=== PATIENT | female | born 1950 | race Two or more races ===

== ENCOUNTER 2018-08-06 18:27 | Inpatient (IN) | payer MEDICARE, MEDICAID ==
[~2018-08-06] VITALS: Ht 157.5 cm; Wt 91.7 kg
[~2018-08-06 18:27] MED LIST: ASPI81TA27 PO; FAMO-12 PO; FURO40TA PO; LISI-275 PO; MINO1CAP PO; OXY5T PO; VORI200T8 PO
[2018-08-06 19:00] LABS: Basophils # (auto) 0.1 uL; Basophils % (auto) 0.6 % (0.0-2.0); Eosinophils # (auto) 0.1 uL; Eosinophils % (auto) 0.4 % (0.0-7.0); Hematocrit 36.8 % (36.0-46.0); Hemoglobin 11.8 g/dL (12.2-16.2); Lymphocytes # (auto) 0.8 uL; Lymphocytes % (auto) 4.7 % (10.0-50.0); Mean Corpuscular Hemoglobin 28.6 pg (28.0-32.0); Mean Corpuscular Hgb Conc. 32.2 g/dL (32.0-36.0); Mean Corpuscular Volume 88.7 fL (80.0-100.0); Monocytes # (auto) 0.9 uL; Monocytes % (auto) 4.7 % (0.0-12.0); Neutrophils # (auto) 16.1 uL; Neutrophils % (auto) 89.6 % (37.0-80.0); Nucleated Red Blood Cells % 0.1 %; Platelet Count (auto) 261 10^3/uL (140-450); Red Blood Cells 4.15 10^6/uL (4.0-5.20); Red Cell Distribution Width 15.6 % (11.8-14.3)
[2018-08-06 19:17] LABS: Albumin 2.6 g/dL (3.4-5.0); Anion Gap 7 (5-15); Blood Urea Nitrogen 60 mg/dL (7-18); Calcium 9.3 mg/dL (8.5-10.1); Carbon Dioxide 30 mmol/L (21-32); Chloride 98 mmol/L (98-107); Glucose 102 mg/dL (74-106); Potassium 4.4 mmol/L (3.5-5.1); Sodium 135 mmol/L (136-145)
[2018-08-06 19:22] LABS: Alanine Aminotransferase 42 U/L (13-56); Alkaline Phosphatase 262 U/L (45-117); Aspartate Aminotransferase 29 U/L (15-37); BUN/Creatinine Ratio 40.3; Bilirubin, Total 0.7 mg/dL (0.2-1.0); GFR African American 44 mL/min; GFR Non-African American 37 mL/min; Total Protein 6.3 g/dL (6.4-8.2)
[2018-08-06 21:00] LABS: Urine Bacteria NONE SEEN /hpf (None Seen); Urine Blood 2+ /uL (Negative); Urine Hyaline Cast FEW /lpf (0 - 2); Urine Specific Gravity 1.016 (1.001-1.035); Urine WBC 3 /hpf (0 - 5)
[2018-08-06 23:01] LABS: Amylase 29 U/L (25-115); Lipase 78 U/L (73-393)
[2018-08-07] MEDS ORDERED: ONDANSETRON HCL 4 MG/2 ML VIAL IV ONE
[2018-08-07] MEDS ORDERED: metroNIDAZOLE 500MG/100ML 100 ML IV ONE (04:00)
[2018-08-07] MEDS ORDERED: cefTRIAXone 1GM/50ML D5W 50 ML IV ONE (04:00)
[2018-08-07] MEDS ORDERED: SODIUM CHLORIDE 0.9% 1,000 ML IV SCH (04:30)
[2018-08-07] MEDS ORDERED: SODIUM CHLORIDE 0.9% 500 ML IV ONE (04:30)
[2018-08-07] MEDS ORDERED: ACETAMINOPHEN 325 MG TAB PO PRN (04:30)
[2018-08-07] MEDS ORDERED: LEVOFLOXACIN 250MG 50 ML IV ONE (05:00)
[2018-08-07] MEDS: HYDROcodone-ACET 5/325MG TAB PO PRN ×2 (05:40→10:46)
[2018-08-07] MEDS: SODIUM CHLORIDE 0.9% 1,000 ML IV SCH ×2 (05:47→20:08)
[2018-08-07] MEDS: metroNIDAZOLE 500MG/100ML 100 ML IV SCH ×3 (06:00→21:07)
[2018-08-07] MEDS: ONDANSETRON HCL 4 MG/2 ML VIAL IV PRN ×3 (07:22→21:19)
[2018-08-07 08:53] VITALS: BP 120/47
[2018-08-07 10:00] VITALS: BP 107/53
[2018-08-07] MEDS: LEVOFLOXACIN 250MG 50 ML IV SCH (10:00)
--- NOTE | 2018-08-07 10:00 | NUR ---
MS admit from DELANO JOHANSEN admitted to M/S. Verbal report received. Patient oriented to Roshni Chávez RN primary RN, unit, room, bed, and unit policies regarding patient care and visiting hours. Patient weighed by bedscale and encouraged to call if they need something. All questions and concerns addressed, patient verbalized understanding. Note:
[2018-08-07] MEDS: PANTOPRAZOLE 40 MG TAB PO SCH (10:45)
--- NOTE | 2018-08-07 10:45 | NUR ---
[place] given for c/oo "severe" low back pain.
[2018-08-07] MEDS ORDERED: MORPHINE SULFATE 4 MG/ML SYR/VIAL IV ONE ×2 (11:30)
--- NOTE | 2018-08-07 12:15 | NUR ---
Order received for one time dose of Morphine 1mg, given at this time for c/o of continued low back pain.
[2018-08-07 13:00] VITALS: BP 97/42
[2018-08-07] MEDS ORDERED: PANTOPRAZOLE 40 MG TAB PO ONE (14:00)
--- NOTE | 2018-08-07 14:00 | NUR ---
Pt resting quietly at this time. Pt states that degree of low back pain has diminished. No other c/o pain or discomfort.
--- NOTE | 2018-08-07 16:00 | NUR ---
[place] given for c/o low back pain.
[2018-08-07 17:00] VITALS: BP 98/31
--- NOTE | 2018-08-07 17:30 | NUR ---
[place] given for c/o "back spasms". No other c/o pain or discomfort at this time.
[2018-08-07] MEDS: CARISOPRODOL 350 MG TAB PO PRN (17:38)
[2018-08-07] MEDS: ALBUTEROL SULF 2.5 MG/0.5ML(0.5%) NEB SOLN NEB SCH (17:46)
[2018-08-07] MEDS: IPRATROPIUM BROM 0.5 MG/2.5ML INH SOL NEB SCH (17:46)
--- NOTE | 2018-08-07 19:10 | NUR ---
Opening Shift Note Assumed care of patient from day shift RN Roshni. Pt is awake and alert and oriented x4. Pt on 2LNC, respirations even equal and unlabored. No S/S of distress/SOB or pain. Safety maintained with bed rails upx2, locked and in lowest position with call del rosario within reach. Instructed on POC and to call for assist PRN, will continue to monitor for changes Q1hr and PRN.
[2018-08-07] MEDS: MORPHINE SULF INJ 2 MG/ML SYRINGE 1ML IV PRN (21:08)
[2018-08-07 22:00] VITALS: BP 123/46
[2018-08-08] MEDS: HYDROcodone-ACET 5/325MG TAB PO PRN ×5 (00:15→23:13)
[2018-08-08 04:30] VITALS: BP 110/50
[2018-08-08] MEDS: ONDANSETRON HCL 4 MG/2 ML VIAL IV PRN ×3 (05:22→20:31)
[2018-08-08] MEDS: MORPHINE SULF INJ 2 MG/ML SYRINGE 1ML IV PRN ×2 (05:23→20:31)
[2018-08-08] MEDS: metroNIDAZOLE 500MG/100ML 100 ML IV SCH ×3 (05:23→21:14)
[2018-08-08] MEDS: IPRATROPIUM BROM 0.5 MG/2.5ML INH SOL NEB SCH ×3 (06:07→18:16)
[2018-08-08] MEDS: ALBUTEROL SULF 2.5 MG/0.5ML(0.5%) NEB SOLN NEB SCH ×3 (06:07→18:17)
[2018-08-08] MEDS: CARISOPRODOL 350 MG TAB PO PRN ×2 (06:49→19:27)
--- NOTE | 2018-08-08 07:24 | NUR ---
Closing Shift Note Endorsed care to day shift RN Roshni. Pt resting in bed, no s/s distress.
[2018-08-08] MEDS: SODIUM CHLORIDE 0.9% 1,000 ML IV SCH ×2 (08:15→21:35)
[2018-08-08 09:00] VITALS: BP 104/52
[2018-08-08 09:15] LABS: Basophils # (auto) 0 uL; Basophils % (auto) 0.3 % (0.0-2.0); Eosinophils # (auto) 0.2 uL; Eosinophils % (auto) 1.6 % (0.0-7.0); Hematocrit 34.8 % (36.0-46.0); Hemoglobin 11.2 g/dL (12.2-16.2); Lymphocytes # (auto) 0.8 uL; Mean Corpuscular Hemoglobin 28.6 pg (28.0-32.0); Mean Corpuscular Hgb Conc. 32.1 g/dL (32.0-36.0); Mean Corpuscular Volume 89.3 fL (80.0-100.0); Monocytes # (auto) 0.8 uL; Monocytes % (auto) 8.1 % (0.0-12.0); Nucleated Red Blood Cells % 0.1 %; Platelet Count (auto) 208 10^3/uL (140-450); Red Blood Cells 3.89 10^6/uL (4.0-5.20); Red Cell Distribution Width 16.1 % (11.8-14.3); White Blood Cell 9.7 10^3/uL (4.4-10.8)
[2018-08-08] MEDS: AMIODARONE HCL 200 MG TAB PO SCH (09:20)
[2018-08-08] MEDS: ASPirin 81 mg TAB PO SCH (09:21)
[2018-08-08] MEDS: PANTOPRAZOLE 40 MG TAB PO SCH ×2 (09:21→10:00)
[2018-08-08] MEDS: LEVOFLOXACIN 250MG 50 ML IV SCH (09:22)
[2018-08-08 09:30] LABS: INR 0.98 (0.9-1.15); Partial Thromboplastin Time 22.3 sec (23.64-32.05)
[2018-08-08 09:42] LABS: Calcium 8.8 mg/dL (8.5-10.1)
[2018-08-08 09:46] LABS: BUN/Creatinine Ratio 29.2; Bilirubin, Total 0.4 mg/dL (0.2-1.0); Total Protein 5.2 g/dL (6.4-8.2)
--- NOTE | 2018-08-08 10:00 | NUR ---
IV removal IV DC'd, to right wrist, due to redness and swelling, with sterile technique, catheter fully intact. Pressure dressing applied to site. Patient tolerated procedure well. IV insertion IV access obtained, via clean sterile technique by inserting 24 gauge catheter at left upper chest area after two attempt. IV secured properly. No trauma to site. Patient tolerated procedure well.
[2018-08-08 10:36] LABS: Cholesterol 165 mg/dL (< 200); HDL Cholesterol 23 mg/dL (40-59); LDL Cholesterol 137 mg/dL (< 100); Triglycerides 90 mg/dL (< 150)
[2018-08-08 13:00] VITALS: BP 125/57
--- NOTE | 2018-08-08 14:00 | NUR ---
PT REFUSED P.T. EVEN AFTER BEING MEDICATED FOR PAIN.
[2018-08-08 17:00] VITALS: BP 124/57
[2018-08-08 22:00] VITALS: BP 99/35
[2018-08-09] MEDS: ONDANSETRON HCL 4 MG/2 ML VIAL IV PRN ×5 (00:33→20:31)
[2018-08-09] MEDS: MORPHINE SULF INJ 2 MG/ML SYRINGE 1ML IV PRN ×5 (00:33→20:31)
[2018-08-09] MEDS: SODIUM CHLORIDE 0.9% 1,000 ML IV SCH (01:48)
[2018-08-09 05:00] VITALS: BP 113/47
[2018-08-09] MEDS: metroNIDAZOLE 500MG/100ML 100 ML IV SCH ×3 (05:29→22:18)
[2018-08-09] MEDS: ALBUTEROL SULF 2.5 MG/0.5ML(0.5%) NEB SOLN NEB SCH ×3 (06:21→17:26)
[2018-08-09] MEDS: IPRATROPIUM BROM 0.5 MG/2.5ML INH SOL NEB SCH ×3 (06:21→17:26)
--- NOTE | 2018-08-09 07:15 | NUR ---
Open Shift Note Received report on patient, asleep in bed but easily awoken. Patient states back pain but less pain when not moving. Patient refusing to have head of bed elevated because they state it makes their pain worse. 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 Educated patient on lung function and ways to decrease anxiety. Also discussed POC with patient and plans for MRCP MRI. Patient verbalized understanding. Bed in lowest locked position, side rails up x2 and call light within reach. Will continue to monitor.
[2018-08-09 08:00] VITALS: BP 102/42
[2018-08-09] MEDS: CARISOPRODOL 350 MG TAB PO PRN (08:24)
--- NOTE | 2018-08-09 09:15 | NUR ---
No MRI Due To Pacemaker Spoke with Jarod from MRI who stated MRI cannot be completed due to patient having pacemaker.
--- NOTE | 2018-08-09 09:23 | NUR ---
Spoke With Dr Amanda Patel at nurses station, states he is aware MRI cannot be completed due to pacemaker. States he believes patient's situation is due to trauma. No further recommendations at this time.
[2018-08-09 09:46] LABS: Basophils # (auto) 0 uL; Basophils % (auto) 0.5 % (0.0-2.0); Eosinophils # (auto) 0.2 uL; Eosinophils % (auto) 2.1 % (0.0-7.0); Hematocrit 34.6 % (36.0-46.0); Hemoglobin 11.1 g/dL (12.2-16.2); Lymphocytes # (auto) 0.5 uL; Lymphocytes % (auto) 7.4 % (10.0-50.0); Mean Corpuscular Hemoglobin 28.8 pg (28.0-32.0); Monocytes # (auto) 0.7 uL; Monocytes % (auto) 9.6 % (0.0-12.0); Neutrophils # (auto) 5.8 uL; Neutrophils % (auto) 80.4 % (37.0-80.0); Platelet Count (auto) 191 10^3/uL (140-450); Red Blood Cells 3.84 10^6/uL (4.0-5.20); Red Cell Distribution Width 16.2 % (11.8-14.3); White Blood Cell 7.3 10^3/uL (4.4-10.8)
[2018-08-09 09:53] LABS: BUN/Creatinine Ratio 24.5; Calcium 8.2 mg/dL (8.5-10.1); Potassium 3.8 mmol/L (3.5-5.1)
[2018-08-09] MEDS: AMIODARONE HCL 200 MG TAB PO SCH (10:29)
[2018-08-09] MEDS: PANTOPRAZOLE 40 MG TAB PO SCH (10:29)
[2018-08-09] MEDS: LEVOFLOXACIN 250MG 50 ML IV SCH (10:29)
[2018-08-09] MEDS: ASPirin 81 mg TAB PO SCH (10:35)
--- NOTE | 2018-08-09 11:00 | NUR ---
PT DECLINED P.T. BECAUSE OF PAIN
[2018-08-09 11:56] VITALS: BP 106/49
[2018-08-09] MEDS: guaiFENesin-DM 100/10mg/5ml SYR PO PRN ×3 (11:56→20:31)
[2018-08-09 16:00] VITALS: BP 106/52
[2018-08-09 17:00] VITALS: BP 106/52
--- NOTE | 2018-08-09 18:52 | NUR ---
Closing Shift Note Patient lying in bed, shows no signs of distress at this time. Bed in lowest locked position, side rails up x2 and call light within reach. Family present at bedside.
--- NOTE | 2018-08-09 19:45 | NUR ---
open note assumed care of pt. upon entering room, pt awake and alert and family member at bedside. no distress noted. bed locked, low and 2xrails up. pt on 2L NC and has strauss in place. call light in reach. pt and family updated on plan of care, no additional questions at this time. will round on pt q1hr and prn.
--- NOTE | 2018-08-09 22:00 | NUR ---
pt does not want to be repositioned. citing "it hurts too bad", referring to pain in back. pt instead encouraged to shift weight regularly so as to prevent skin breakdown.
[2018-08-09 22:41] VITALS: BP 124/54
[2018-08-09] MEDS: TEMAZEPAM 15 MG CAP PO PRN (22:45)
[2018-08-10] MEDS: SODIUM CHLORIDE 0.9% 1,000 ML IV SCH ×2 (00:15→13:51)
[2018-08-10] MEDS: ONDANSETRON HCL 4 MG/2 ML VIAL IV PRN ×5 (00:45→19:13)
[2018-08-10] MEDS: guaiFENesin-DM 100/10mg/5ml SYR PO PRN ×5 (00:46→19:13)
[2018-08-10] MEDS: MORPHINE SULF INJ 2 MG/ML SYRINGE 1ML IV PRN ×5 (00:46→19:13)
--- NOTE | 2018-08-10 03:43 | NUR ---
rounds upon entering room pt eyes are closed, breathing is even and unlabored. no s/s distress noted. call light in reach, will continue to monitor.
[2018-08-10] MEDS: CARISOPRODOL 350 MG TAB PO PRN ×2 (03:55→16:53)
[2018-08-10] MEDS: metroNIDAZOLE 500MG/100ML 100 ML IV SCH ×3 (05:43→21:37)
[2018-08-10 05:53] VITALS: BP 119/57
[2018-08-10] MEDS: IPRATROPIUM BROM 0.5 MG/2.5ML INH SOL NEB SCH ×4 (06:55→19:00)
[2018-08-10] MEDS: ALBUTEROL SULF 2.5 MG/0.5ML(0.5%) NEB SOLN NEB SCH ×4 (06:55→19:00)
[2018-08-10 08:00] VITALS: BP 103/43
[2018-08-10] MEDS: PANTOPRAZOLE 40 MG TAB PO SCH (10:00)
[2018-08-10] MEDS: FUROSEMIDE 20 MG TAB PO SCH (10:36)
[2018-08-10] MEDS: ASPirin 81 mg TAB PO SCH (10:36)
[2018-08-10] MEDS: AMIODARONE HCL 200 MG TAB PO SCH (10:36)
[2018-08-10] MEDS: LEVOFLOXACIN 500MG 100 ML IV SCH (10:37)
[2018-08-10] MEDS: DOCUSATE SOD 100 MG CAP PO SCH ×2 (10:37→21:36)
[2018-08-10 12:00] VITALS: BP 115/51
--- NOTE | 2018-08-10 14:04 | NUR ---
NUTRITION ASSESSMENT NOTES Please refer to link notes of nutrition screen form filed under the intervention section of the plan of care for further details. Est. Needs: 1350 kcal to 1800 kcal (15-20 kcal/kgBW), 72 gms to 90 gms pro (0.8-1.0 gms/kgBW). Will continue to monitor pertinent labs and reassess nutrient need prn Thank you. Addendum: 08/10/18 at [address] Amended: Links added.
--- NOTE | 2018-08-10 15:00 | NUR ---
PT REFUSED P.T. EVEN WITH BACK BRACE.
[2018-08-10 15:49] VITALS: BP 115/51
[2018-08-10] MEDS: HYDROcodone-ACET 5/325MG TAB PO PRN ×2 (16:53→22:16)
[2018-08-10 17:00] VITALS: BP 111/54
[2018-08-10 22:00] VITALS: BP 112/48
[2018-08-10] MEDS: TEMAZEPAM 15 MG CAP PO PRN (22:15)
[2018-08-11] MEDS: MORPHINE SULF INJ 2 MG/ML SYRINGE 1ML IV PRN ×5 (01:21→23:30)
[2018-08-11] MEDS: ONDANSETRON HCL 4 MG/2 ML VIAL IV PRN ×2 (01:21→23:30)
[2018-08-11] MEDS: guaiFENesin-DM 100/10mg/5ml SYR PO PRN ×3 (01:26→23:35)
[2018-08-11] MEDS: SODIUM CHLORIDE 0.9% 1,000 ML IV SCH ×2 (04:11→16:15)
[2018-08-11] MEDS: HYDROcodone-ACET 5/325MG TAB PO PRN ×4 (04:20→20:54)
[2018-08-11 05:20] VITALS: BP 116/62
[2018-08-11] MEDS: metroNIDAZOLE 500MG/100ML 100 ML IV SCH ×3 (05:31→21:15)
[2018-08-11] MEDS: IPRATROPIUM BROM 0.5 MG/2.5ML INH SOL NEB SCH ×3 (06:48→18:33)
[2018-08-11] MEDS: ALBUTEROL SULF 2.5 MG/0.5ML(0.5%) NEB SOLN NEB SCH ×3 (06:48→18:33)
--- NOTE | 2018-08-11 07:43 | NUR ---
Report given to Hi Marquez to assume care, patient is resting no distress.
[2018-08-11 08:42] VITALS: BP 111/52
[2018-08-11] MEDS: LEVOFLOXACIN 500MG 100 ML IV SCH (09:17)
[2018-08-11] MEDS: ASPirin 81 mg TAB PO SCH (09:17)
[2018-08-11] MEDS: AMIODARONE HCL 200 MG TAB PO SCH (09:17)
[2018-08-11] MEDS: DOCUSATE SOD 100 MG CAP PO SCH ×2 (09:17→21:15)
[2018-08-11] MEDS: PANTOPRAZOLE 40 MG TAB PO SCH (09:18)
[2018-08-11] MEDS: FUROSEMIDE 20 MG TAB PO SCH (09:18)
--- NOTE | 2018-08-11 10:44 | NUR ---
JIN CATHETER CARE COMPLETED. APPLIED BARRIER CREAM TO REDDENED PERINEAL AREA, ABDOMINAL AND BREAST FOLDS. PROVIDED COMFORTABLE POSITIONING IN BED. CALL LIGHT WITHIN REACH. WILL CONTINUE TO MONITOR.
[2018-08-11] MEDS: CARISOPRODOL 350 MG TAB PO PRN (10:52)
[2018-08-11] MEDS: ENOXAPARIN SOD 40 MG/0.4 ML SYRINGE SC SCH (10:53)
--- NOTE | 2018-08-11 11:50 | NUR ---
COMPLETE BACK SUPPORT BRACE APPLIED. PT TOLERATED PROCEDURE FAIRLY.
[2018-08-11 12:30] VITALS: BP 108/55
[2018-08-11 17:00] VITALS: BP 120/56
--- NOTE | 2018-08-11 19:30 | NUR ---
Opening shift note Patient in bed sleeping with eyes closed, easily arousable to verbal stimuli. Patient's respiration even and unlabored, denies pain and discomfort at this time. Morphine was given by prior shift RN. Plan of care discussed, patient verbalized understanding. All needs attended, will continue to monitor.
[2018-08-11] MEDS: TEMAZEPAM 15 MG CAP PO PRN (21:15)
[2018-08-11 22:15] VITALS: BP 103/62
[2018-08-12] VITALS (7 sets, daily range): BP systolic 96–119; BP diastolic 47–59
[2018-08-12] MEDS: HYDROcodone-ACET 5/325MG TAB PO PRN ×5 (01:26→20:43)
[2018-08-12] MEDS: SODIUM CHLORIDE 0.9% 1,000 ML IV SCH ×2 (02:51→18:55)
[2018-08-12] MEDS: ONDANSETRON HCL 4 MG/2 ML VIAL IV PRN ×5 (03:25→22:35)
[2018-08-12] MEDS: MORPHINE SULF INJ 2 MG/ML SYRINGE 1ML IV PRN ×5 (03:25→22:35)
[2018-08-12] MEDS: guaiFENesin-DM 100/10mg/5ml SYR PO PRN ×3 (03:43→20:43)
[2018-08-12] MEDS: metroNIDAZOLE 500MG/100ML 100 ML IV SCH ×3 (05:21→21:42)
--- NOTE | 2018-08-12 07:20 | NUR ---
Opening Shift Note Assumed care of patient, awake and alert. No S/S of distress/SOB or pain. Instructed on POC and to call for assist PRN, will continue to monitor for changes Q1hr and PRN.
[2018-08-12] MEDS: ALBUTEROL SULF 2.5 MG/0.5ML(0.5%) NEB SOLN NEB SCH ×3 (07:32→20:18)
[2018-08-12] MEDS: IPRATROPIUM BROM 0.5 MG/2.5ML INH SOL NEB SCH ×3 (07:32→20:18)
[2018-08-12] MEDS: LEVOFLOXACIN 500MG 100 ML IV SCH (09:27)
[2018-08-12] MEDS: PANTOPRAZOLE 40 MG TAB PO SCH (09:27)
[2018-08-12] MEDS: DOCUSATE SOD 100 MG CAP PO SCH ×2 (09:28→21:42)
[2018-08-12] MEDS: AMIODARONE HCL 200 MG TAB PO SCH (09:28)
[2018-08-12] MEDS: ASPirin 81 mg TAB PO SCH (09:28)
[2018-08-12] MEDS: FUROSEMIDE 20 MG TAB PO SCH (09:29)
[2018-08-12] MEDS: ENOXAPARIN SOD 40 MG/0.4 ML SYRINGE SC SCH (09:29)
--- NOTE | 2018-08-12 17:13 | NUR ---
assessment Patient is a 68 year old female who is alert and oriented. Prior to admission patient lived home with her Ex Keyur and functioned with assistance from her [facility] caregiver Silvana her daughter. Patients PCP is Dr Olman Padilla. Patient has a fww, wheelchair and home 02. Patient has no advanced directive or POA and does not want one at this time. I informed patient she has a ss consult for SNF and patient agrees to SNF placement. Per SS consult for rehab L1 fx . Pt requested [facility]. Per Eulalio from [facility] pt was not accepted. Per patient she does not want [facility]. Patient is requesting [facility]. Will re-direct MD order to [facility]. Addendum: 08/12/18 at 1717 by Maxine Giles Amended: Links added.
--- NOTE | 2018-08-12 22:18 | NUR ---
Opening Shift Note Assumed care of patient, awake and alert. at bed side. No S/S of distress/SOB or pain. Instructed on POC and to call for assist PRN, will continue to monitor for changes Q1hr and PRN.
--- NOTE | 2018-08-13 01:20 | NUR ---
NEW JIN CATHETER INSERTED UPON ROUNDING AND REPOSITIONING PATIENT. PATIENT STATES FEELING WET, ON ASSESSMENT URINE NOTED ON SHEETS PROGRESSIVELY. NEW JIN IN PLACE. PATIENT TOLERATED WELL.
[2018-08-13] MEDS: HYDROcodone-ACET 5/325MG TAB PO PRN ×4 (02:00→21:45)
[2018-08-13] MEDS: guaiFENesin-DM 100/10mg/5ml SYR PO PRN ×2 (02:00→21:40)
[2018-08-13 05:00] VITALS: BP 112/67
[2018-08-13] MEDS: ONDANSETRON HCL 4 MG/2 ML VIAL IV PRN (05:13)
[2018-08-13] MEDS: MORPHINE SULF INJ 2 MG/ML SYRINGE 1ML IV PRN ×4 (05:13→20:08)
[2018-08-13] MEDS: metroNIDAZOLE 500MG/100ML 100 ML IV SCH ×3 (06:20→21:40)
[2018-08-13] MEDS: IPRATROPIUM BROM 0.5 MG/2.5ML INH SOL NEB SCH ×3 (07:17→19:26)
[2018-08-13] MEDS: ALBUTEROL SULF 2.5 MG/0.5ML(0.5%) NEB SOLN NEB SCH ×3 (07:17→19:26)
[2018-08-13 08:15] VITALS: BP 112/67
[2018-08-13] MEDS: SODIUM CHLORIDE 0.9% 1,000 ML IV SCH ×2 (08:15→21:35)
[2018-08-13 09:00] VITALS: BP 125/63
[2018-08-13] MEDS: LEVOFLOXACIN 500MG 100 ML IV SCH (09:44)
[2018-08-13] MEDS: AMIODARONE HCL 200 MG TAB PO SCH (09:45)
[2018-08-13] MEDS: ASPirin 81 mg TAB PO SCH (09:45)
[2018-08-13] MEDS: DOCUSATE SOD 100 MG CAP PO SCH ×2 (09:45→21:41)
[2018-08-13] MEDS: PANTOPRAZOLE 40 MG TAB PO SCH (09:46)
[2018-08-13] MEDS: ENOXAPARIN SOD 40 MG/0.4 ML SYRINGE SC SCH (09:46)
[2018-08-13] MEDS: FUROSEMIDE 20 MG TAB PO SCH (09:46)
--- NOTE | 2018-08-13 09:59 | NUR ---
Per GREG consult for rehab L1 fx . Pt requested [facility]. Per Eulalio from [facility] they are unable to satisfied pt needs. Contacted Brandy from [place] ) Fax: ) pt accepted to room 63B accepting MD Dr. Liu. Per Brandy they will set up transportation upon d/c. Addendum: 08/13/18 at 1001 by NANCI ANDRADE Amended: Links added.
--- NOTE | 2018-08-13 11:36 | NUR ---
Pt Primary Dr. Padilla will follow pt at [facility]. Informed Brandy from [facility].
--- NOTE | 2018-08-13 11:51 | NUR ---
Nutrition Follow-up Notes Wt.: 94.5 kg Pt was sleeping with no family by bedside. per records pt with back pain due to L 1 fx post fall. per reyna pt working with PT for same. pt is currently on cardiac diet with inadequate PO of 50% x 5 per RN doc Est. Needs: 1350 kcal to 1800 kcal (15-20 kcal/kgBW), 72 gms to 90 gms pro (0.8-1.0 gms/kgBW). Will continue to monitor pertinent labs and reassess nutrient need prn Labs: No new labs today 08/09: CA 8.2 L. Skin: Curly scale 14, mod risk, skin intact per manager company. GI: Pt has no BM reported per manager company. PES: Altered nutrition related lab values r/t acute/chronic medical condition aeb hypocalcemia, low Cr, elev. ALP, LDL, and severe hypoalbuminemia Obesity r.t excessive PO intake aeb 179% IBW, BMI 36.1 kg/m2 and increased body adiposity Will continue to monitor PO intake, skin status, pertinent labs and weight trend. F/u in 3-5 days. Rec.: 1.) If Albumin level continues trending down, consider Prostat 1 pkt BID. 2.) Continue close supervision during meals. 3.) Refer pt to RD for further nutrition education and weight monitoring upon discharge. 4.) Continue current plan of care.
[2018-08-13 13:00] VITALS: BP 115/56
[2018-08-13 16:41] VITALS: BP 119/61
--- NOTE | 2018-08-13 18:43 | NUR ---
Respiratory note: AT BEDSIDE FOR MED SUZIE ACEVEDO, PT CALLING FOR NURSE BECAUSE PT ACCIDENTALLY SOILED THE BED, NEDRA DOW COMMUNICATED OF PTS COMPLAINTS. WILL RETURN AT LATER TIME TO ADMINISTER MED.
--- NOTE | 2018-08-13 19:25 | NUR ---
Opening Shift Note Assumed care of patient, awake and alert. No S/S of distress/SOB. PT complained of pain will medicate per MD order. Instructed on POC and to call for assist PRN, will continue to monitor for changes Q1hr and PRN. Bed locked and in lowest position, call light within reach.
--- NOTE | 2018-08-13 19:27 | NUR ---
Respiratory note: AT BEDSIDE FOR MED NEB TX. PT TOLERATING TX WELL VIA MASK. RT NAME AND PAGER ASSIGNMENT WRITTEN ON PTS ROOM BOARD.
[2018-08-13 22:00] VITALS: BP 128/56
[2018-08-13] MEDS: TEMAZEPAM 15 MG CAP PO PRN (22:54)
[2018-08-14] MEDS: SODIUM CHLORIDE 0.9% 1,000 ML IV SCH (01:58)
[2018-08-14 05:00] VITALS: BP 130/65
[2018-08-14] MEDS: MORPHINE SULF INJ 2 MG/ML SYRINGE 1ML IV PRN ×4 (05:23→22:27)
[2018-08-14] MEDS: metroNIDAZOLE 500MG/100ML 100 ML IV SCH ×3 (05:24→22:24)
[2018-08-14] MEDS: guaiFENesin-DM 100/10mg/5ml SYR PO PRN ×3 (05:24→22:28)
[2018-08-14] MEDS: IPRATROPIUM BROM 0.5 MG/2.5ML INH SOL NEB SCH ×3 (06:39→18:54)
[2018-08-14] MEDS: ALBUTEROL SULF 2.5 MG/0.5ML(0.5%) NEB SOLN NEB SCH ×3 (06:39→18:53)
--- NOTE | 2018-08-14 07:43 | NUR ---
CLOSING NOTE Report endorsed to day RN , no s/sx's of distress or sob noted
[2018-08-14 08:00] VITALS: BP 115/60
[2018-08-14] MEDS: HYDROcodone-ACET 5/325MG TAB PO PRN ×3 (08:26→21:25)
[2018-08-14] MEDS: LEVOFLOXACIN 500MG 100 ML IV SCH (10:08)
[2018-08-14] MEDS: PANTOPRAZOLE 40 MG TAB PO SCH (10:09)
[2018-08-14] MEDS: AMIODARONE HCL 200 MG TAB PO SCH (10:09)
[2018-08-14] MEDS: ASPirin 81 mg TAB PO SCH (10:09)
[2018-08-14] MEDS: DOCUSATE SOD 100 MG CAP PO SCH ×2 (10:09→22:25)
[2018-08-14] MEDS: ENOXAPARIN SOD 40 MG/0.4 ML SYRINGE SC SCH (10:09)
[2018-08-14] MEDS: FUROSEMIDE 20 MG TAB PO SCH (10:10)
[2018-08-14 12:00] VITALS: BP 124/68
[2018-08-14 16:00] VITALS: BP 135/55
[2018-08-14 22:00] VITALS: BP 115/53
[2018-08-14] MEDS: TEMAZEPAM 15 MG CAP PO PRN (22:28)
[2018-08-15] MEDS: SODIUM CHLORIDE 0.9% 1,000 ML IV SCH ×2 (00:15→14:03)
[2018-08-15 05:00] VITALS: BP 111/62
[2018-08-15] MEDS: IPRATROPIUM BROM 0.5 MG/2.5ML INH SOL NEB SCH ×3 (06:09→19:29)
[2018-08-15] MEDS: ALBUTEROL SULF 2.5 MG/0.5ML(0.5%) NEB SOLN NEB SCH ×3 (06:09→19:29)
[2018-08-15] MEDS: metroNIDAZOLE 500MG/100ML 100 ML IV SCH ×3 (06:20→21:34)
[2018-08-15 06:55] LABS: Basophils # (auto) 0 uL; Basophils % (auto) 0.2 % (0.0-2.0); Eosinophils # (auto) 0.1 uL; Eosinophils % (auto) 0.9 % (0.0-7.0); Hematocrit 30.9 % (36.0-46.0); Hemoglobin 10.2 g/dL (12.2-16.2); Lymphocytes # (auto) 1.7 uL; Lymphocytes % (auto) 15.7 % (10.0-50.0); Mean Corpuscular Hemoglobin 29.4 pg (28.0-32.0); Monocytes # (auto) 0.8 uL; Monocytes % (auto) 7.9 % (0.0-12.0); Neutrophils # (auto) 8.1 uL; Neutrophils % (auto) 75.3 % (37.0-80.0); Nucleated Red Blood Cells % 0.2 %; Platelet Count (auto) 200 10^3/uL (140-450); Red Blood Cells 3.47 10^6/uL (4.0-5.20); Red Cell Distribution Width 16.9 % (11.8-14.3); White Blood Cell 10.7 10^3/uL (4.4-10.8)
[2018-08-15 08:54] VITALS: BP 136/59
[2018-08-15] MEDS: HYDROcodone-ACET 5/325MG TAB PO PRN ×3 (09:03→20:01)
[2018-08-15] MEDS: ENOXAPARIN SOD 40 MG/0.4 ML SYRINGE SC SCH (10:00)
[2018-08-15] MEDS: LEVOFLOXACIN 500MG 100 ML IV SCH (12:03)
[2018-08-15] MEDS: DOCUSATE SOD 100 MG CAP PO SCH ×2 (12:03→21:35)
[2018-08-15] MEDS: FUROSEMIDE 20 MG TAB PO SCH (12:03)
[2018-08-15] MEDS: ASPirin 81 mg TAB PO SCH (12:03)
[2018-08-15] MEDS: AMIODARONE HCL 200 MG TAB PO SCH (12:04)
[2018-08-15] MEDS: PANTOPRAZOLE 40 MG TAB PO SCH (12:04)
--- NOTE | 2018-08-15 12:22 | NUR ---
Pt states she is unable to sit today for a prolonged period of time, pt states she has increased pain and discomfort. Pt worked on log rolling from R<---->L. Pt was instructed to use bed rail for support and to use bed rail to pull herself towards the side she is wanting to turn. Pt understood and was able to return demonstration Addendum: 08/15/18 at 1224 by Talia Sahu PT Amended: Links added.
[2018-08-15 13:00] VITALS: BP 139/62
[2018-08-15 17:00] VITALS: BP 117/59
--- NOTE | 2018-08-15 19:30 | NUR ---
RECEIVED PATIENT LYING IN BED, AWAKE, ALERT, ORIENTED X4. NO S/S OF RESPIRATORY DISTRESS, DENIES SOB AND CHEST PAIN. STILL C/O LOWER BACK PAIN. ORIENTED ON PLAN OF CARE. BED IS LOCKED AND IN LOWEST LEVEL, SIDE RAILS UP X2, CALL LIGHT WITHIN REACH. WILL CONTINUE TO MONITOR.
[2018-08-15] MEDS: MORPHINE SULF INJ 2 MG/ML SYRINGE 1ML IV PRN (21:27)
[2018-08-15] MEDS: ONDANSETRON HCL 4 MG/2 ML VIAL IV PRN (21:30)
[2018-08-15 22:00] VITALS: BP 110/55
[2018-08-15] MEDS: TEMAZEPAM 15 MG CAP PO PRN (22:28)
[2018-08-16] MEDS: ONDANSETRON HCL 4 MG/2 ML VIAL IV PRN ×5 (01:42→21:39)
[2018-08-16] MEDS: MORPHINE SULF INJ 2 MG/ML SYRINGE 1ML IV PRN ×5 (01:42→21:39)
[2018-08-16] MEDS: SODIUM CHLORIDE 0.9% 1,000 ML IV SCH ×2 (02:55→17:01)
--- NOTE | 2018-08-16 03:00 | NUR ---
CARE ENDORSED TO NEDRA LR
[2018-08-16 05:10] VITALS: BP 136/66
[2018-08-16] MEDS: ALBUTEROL SULF 2.5 MG/0.5ML(0.5%) NEB SOLN NEB SCH ×3 (06:00→17:11)
[2018-08-16] MEDS: IPRATROPIUM BROM 0.5 MG/2.5ML INH SOL NEB SCH ×3 (06:00→17:11)
[2018-08-16] MEDS: metroNIDAZOLE 500MG/100ML 100 ML IV SCH ×3 (06:30→21:39)
--- NOTE | 2018-08-16 07:45 | NUR ---
OPENING NOTE Assumed care of patient from [facility] RNIsai. Patient resting in bed with eyes closed, even rise and fall of chest noted. No S/S of SOB/distress. Nasal cannula in position, connected to 2L O2. Olivas catheter appears intact, patent and is hung below bed. Bed in lowest, locked position with side rails up x2. Fall precautions in place and call light within reach. Will continue to monitor for changes Q1hr and PRN.
[2018-08-16 09:00] VITALS: BP 144/67
[2018-08-16] MEDS: LEVOFLOXACIN 500MG 100 ML IV SCH (10:33)
[2018-08-16] MEDS: ASPirin 81 mg TAB PO SCH (10:33)
[2018-08-16] MEDS: DOCUSATE SOD 100 MG CAP PO SCH ×2 (10:34→21:40)
[2018-08-16] MEDS: FUROSEMIDE 20 MG TAB PO SCH (10:34)
[2018-08-16] MEDS: ENOXAPARIN SOD 40 MG/0.4 ML SYRINGE SC SCH (10:34)
[2018-08-16] MEDS: AMIODARONE HCL 200 MG TAB PO SCH (10:34)
[2018-08-16] MEDS: PANTOPRAZOLE 40 MG TAB PO SCH (10:34)
[2018-08-16 13:00] VITALS: BP 130/58
[2018-08-16 14:30] VITALS: BP 147/67
[2018-08-16] MEDS: HYDROcodone-ACET 5/325MG TAB PO PRN ×2 (15:05→19:57)
[2018-08-16 17:00] VITALS: BP 125/76
--- NOTE | 2018-08-16 17:45 | NUR ---
IV Leaking IV removed, catheter intact. IV access obtained, via clean sterile technique by inserting 20 gauge catheter at right chest after 2 attempts. IV secured properly. No trauma to site. Patient tolerated well.
--- NOTE | 2018-08-16 19:22 | NUR ---
CLOSING NOTE Endorsed care of patient to NOC Andrew SNEED.
--- NOTE | 2018-08-16 19:35 | NUR ---
RECEIVED PATIENT LYING IN BED, AWAKE, ALERT, ORIENTED X4. NO S/S OF RESPIRATORY DISTRESS, DENIES SOB AND CHEST PAIN. ORIENTED ON PLAN OF CARE. BED IS LOCKED AND IN LOWEST LEVEL, SIDE RAILS UP X2, CALL LIGHT WITHIN REACH. WILL CONTINUE TO MONITOR.
--- NOTE | 2018-08-16 19:45 | NUR ---
DR. Arabella SALMERON AT BEDSIDE
[2018-08-16 22:00] VITALS: BP 122/63
[2018-08-16] MEDS: TEMAZEPAM 15 MG CAP PO PRN (22:43)
[2018-08-17] MEDS: MORPHINE SULF INJ 2 MG/ML SYRINGE 1ML IV PRN ×5 (02:49→20:53)
[2018-08-17] MEDS: ONDANSETRON HCL 4 MG/2 ML VIAL IV PRN ×5 (02:49→20:52)
[2018-08-17] MEDS: ALBUTEROL SULF 2.5 MG/0.5ML(0.5%) NEB SOLN NEB PRN (03:05)
[2018-08-17 05:00] VITALS: BP 138/60
[2018-08-17] MEDS: SODIUM CHLORIDE 0.9% 1,000 ML IV SCH ×2 (05:35→18:53)
[2018-08-17] MEDS: metroNIDAZOLE 500MG/100ML 100 ML IV SCH (05:49)
[2018-08-17] MEDS: IPRATROPIUM BROM 0.5 MG/2.5ML INH SOL NEB SCH ×3 (06:28→19:24)
[2018-08-17] MEDS: ALBUTEROL SULF 2.5 MG/0.5ML(0.5%) NEB SOLN NEB SCH ×3 (06:29→19:24)
--- NOTE | 2018-08-17 07:29 | NUR ---
CARE ENDORSED TO AM SHIFT RN
--- NOTE | 2018-08-17 07:35 | NUR ---
OPENING NOTE Assumed care of patient from NOC RNAndrew. Patient awake and alert with no S/S of distress/SOB. C/O of back pain 6/10 on adult pain scale, will administer prn pain medications as ordered. Back brace in position. Nasal cannula in position, connected to 2L O2. Olivas catheter intact, patent and hung below bed. Instructed on POC and to call for assist PRN, verbalized understanding. Bed in lowest, locked position with side rails up x2. Fall precautions in place and call light within reach. Will continue to monitor for changes Q1hr and PRN.
[2018-08-17 08:59] VITALS: BP 127/56
--- NOTE | 2018-08-17 09:30 | NUR ---
PT Patient working with physical therapy at bedside.
[2018-08-17] MEDS: DOCUSATE SOD 100 MG CAP PO SCH ×2 (10:00→22:00)
[2018-08-17] MEDS: ASPirin 81 mg TAB PO SCH (10:24)
[2018-08-17] MEDS: PANTOPRAZOLE 40 MG TAB PO SCH (10:25)
[2018-08-17] MEDS: ENOXAPARIN SOD 40 MG/0.4 ML SYRINGE SC SCH (10:25)
[2018-08-17] MEDS: FUROSEMIDE 20 MG TAB PO SCH (10:25)
[2018-08-17] MEDS: AMIODARONE HCL 200 MG TAB PO SCH (10:25)
--- NOTE | 2018-08-17 11:55 | NUR ---
Nutrition Follow-up Notes Wt.: 93.9 kg Pt was sleeping with no family by bedside. per records pt with back pain due to L 1 fx post fall. pt is currently on cardiac diet with inadequate PO of 50% x 2 days per RN doc Est. Needs: 1350 kcal to 1800 kcal (15-20 kcal/kgBW), 72 gms to 90 gms pro (0.8-1.0 gms/kgBW). Will continue to monitor pertinent labs and reassess nutrient need prn Labs: No new labs today 08/09: CA 8.2 L, ALB 2.0 L. Skin: Curly scale 15, mod risk, skin intact per asbestos worker helper. GI: Pt had 2 BM on 08/15 per asbestos worker helper. PES: Altered nutrition related lab values r/t acute/chronic medical condition aeb hypocalcemia, low Cr, elev. ALP, LDL, and severe hypoalbuminemia Obesity r.t excessive PO intake aeb 179% IBW, BMI 36.1 kg/m2 and increased body adiposity Will continue to monitor PO intake, skin status, pertinent labs and weight trend. F/u in 3-5 days. Rec.: 1.) If Albumin level continues trending down, consider Prostat 1 pkt BID. 2.) Continue close supervision during meals. 3.) Refer pt to RD for further nutrition education and weight monitoring upon discharge. 4.) Continue current plan of care.
[2018-08-17 12:30] VITALS: BP 134/79
[2018-08-17 16:56] VITALS: BP 130/68
--- NOTE | 2018-08-17 18:50 | NUR ---
PAGED Paged Dr. Voss regarding Echocardiogram results.
--- NOTE | 2018-08-17 19:17 | NUR ---
CLOSING NOTE Endorsed care of patient to NOC Andrew SNEED.
--- NOTE | 2018-08-17 19:30 | NUR ---
RECEIVED PATIENT LYING IN BED, AWAKE, ALERT, ORIENTED X4. NO S/S OF RESPIRATORY DISTRESS, DENIES SOB AND CHEST PAIN. ORIENTED ON PLAN OF CARE. BED IS LOCKED AND IN LOWEST LEVEL, SIDE RAILS UP X2, BED ALARM ON, CALL LIGHT WITHIN REACH. WILL CONTINUE TO MONITOR.
[2018-08-17] MEDS: TEMAZEPAM 15 MG CAP PO PRN (22:18)
[2018-08-17 22:21] VITALS: BP 108/58
[2018-08-18] MEDS: HYDROcodone-ACET 5/325MG TAB PO PRN (00:06)
[2018-08-18] MEDS: MORPHINE SULF INJ 2 MG/ML SYRINGE 1ML IV PRN ×4 (05:13→20:28)
[2018-08-18] MEDS: ONDANSETRON HCL 4 MG/2 ML VIAL IV PRN ×3 (05:13→15:45)
[2018-08-18 05:43] VITALS: BP 139/58
[2018-08-18] MEDS: ALBUTEROL SULF 2.5 MG/0.5ML(0.5%) NEB SOLN NEB SCH ×4 (07:04→18:13)
[2018-08-18] MEDS: IPRATROPIUM BROM 0.5 MG/2.5ML INH SOL NEB SCH ×4 (07:04→18:13)
--- NOTE | 2018-08-18 07:15 | NUR ---
OPENING NOTE Assumed care of patient from NOC RNAndrew. Patient awake and alert with no S/S of distress/SOB. C/O of back pain 7/10 on adult pain scale, will administer prn pain medication as prescribed. Nasal cannula in position, connected to 2L O2. Instructed on POC and to call for assist PRN, verbalized understanding. Bed in lowest, locked position with side rails up x2. Fall precautions in place and call light within reach. Will continue to monitor for changes Q1hr and PRN.
--- NOTE | 2018-08-18 07:18 | NUR ---
CARE ENDORSED TO AM SHIFT RN
[2018-08-18 09:00] VITALS: BP 123/55
[2018-08-18] MEDS: SODIUM CHLORIDE 0.9% 1,000 ML IV SCH ×2 (10:07→21:38)
[2018-08-18] MEDS: PANTOPRAZOLE 40 MG TAB PO SCH (10:08)
[2018-08-18] MEDS: ASPirin 81 mg TAB PO SCH (10:08)
[2018-08-18] MEDS: AMIODARONE HCL 200 MG TAB PO SCH (10:08)
[2018-08-18] MEDS: DOCUSATE SOD 100 MG CAP PO SCH ×3 (10:08→21:40)
[2018-08-18] MEDS: ALBUTEROL SULF 2.5 MG/0.5ML(0.5%) NEB SOLN NEB PRN (10:15)
[2018-08-18] MEDS: ENOXAPARIN SOD 40 MG/0.4 ML SYRINGE SC SCH (10:16)
[2018-08-18] MEDS: FUROSEMIDE 20 MG TAB PO SCH (10:16)
--- NOTE | 2018-08-18 10:20 | NUR ---
LEFT MESSAGE FOR MD Left message for Dr. Arabella Armas regarding cardiac clearance. Awaiting call back.
[2018-08-18 13:00] VITALS: BP 129/65
--- NOTE | 2018-08-18 13:11 | NUR ---
PAGED Left message with Dr. Armas's office regarding cardiac clearance. Awaiting call back from .
[2018-08-18] MEDS: guaiFENesin-DM 100/10mg/5ml SYR PO PRN ×2 (14:02→20:28)
[2018-08-18 16:51] VITALS: BP 122/68
--- NOTE | 2018-08-18 18:30 | NUR ---
AT BEDSIDE Dr. Armas at patient's bedside.
--- NOTE | 2018-08-18 19:10 | NUR ---
assumed care, pt. awake, no c/o pain, repositioned pt. no sob.
[2018-08-18 19:44] LABS: Basophils # (auto) 0 uL; Basophils % (auto) 0.2 % (0.0-2.0); Eosinophils # (auto) 0 uL; Eosinophils % (auto) 0.1 % (0.0-7.0); Hematocrit 31.6 % (36.0-46.0); Hemoglobin 10.1 g/dL (12.2-16.2); Lymphocytes # (auto) 1.1 uL; Lymphocytes % (auto) 9.9 % (10.0-50.0); Mean Corpuscular Hemoglobin 27.6 pg (28.0-32.0); Mean Corpuscular Volume 86.3 fL (80.0-100.0); Monocytes # (auto) 0.8 uL; Monocytes % (auto) 7.3 % (0.0-12.0); Neutrophils # (auto) 9.2 uL; Neutrophils % (auto) 82.5 % (37.0-80.0); Platelet Count (auto) 357 10^3/uL (140-450); Red Blood Cells 3.66 10^6/uL (4.0-5.20); Red Cell Distribution Width 16.5 % (11.8-14.3); White Blood Cell 11.2 10^3/uL (4.4-10.8)
[2018-08-18 19:58] LABS: Alanine Aminotransferase 14 U/L (13-56); Albumin 1.7 g/dL (3.4-5.0); Anion Gap 9 (5-15); Aspartate Aminotransferase 12 U/L (15-37); BUN/Creatinine Ratio 8.8; Blood Urea Nitrogen 6 mg/dL (7-18); Carbon Dioxide 31 mmol/L (21-32); Chloride 101 mmol/L (98-107); GFR African American 110 mL/min; GFR Non-African American 91 mL/min; Glucose 118 mg/dL (74-106); Sodium 141 mmol/L (136-145)
[2018-08-18 20:01] LABS: Alkaline Phosphatase 144 U/L (45-117); Bilirubin, Total 0.3 mg/dL (0.2-1.0); Total Protein 5.8 g/dL (6.4-8.2)
--- NOTE | 2018-08-18 20:40 | NUR ---
lab. called, pt. k- 2.8, paged hospitalist, waiting to call back.
[2018-08-18 20:42] LABS: Potassium 2.8 mmol/L (3.5-5.1)
[2018-08-18 20:53] LABS: INR 1.02 (0.9-1.15); Partial Thromboplastin Time 29.4 sec (23.64-32.05)
--- NOTE | 2018-08-18 21:10 | NUR ---
hospitalist called back, made order and carried out.
[2018-08-18] MEDS ORDERED: POTASSIUM CHL 20 Meq TABLET PO ONE (21:15)
[2018-08-18 21:40] VITALS: BP 132/56
[2018-08-18] MEDS: TEMAZEPAM 15 MG CAP PO PRN (22:26)
[2018-08-19] MEDS: MORPHINE SULF INJ 2 MG/ML SYRINGE 1ML IV PRN ×5 (01:23→18:51)
[2018-08-19] MEDS: ALBUTEROL SULF 2.5 MG/0.5ML(0.5%) NEB SOLN NEB PRN (03:41)
[2018-08-19 05:19] VITALS: BP 122/60
[2018-08-19] MEDS: IPRATROPIUM BROM 0.5 MG/2.5ML INH SOL NEB SCH ×3 (06:44→17:53)
[2018-08-19] MEDS: ALBUTEROL SULF 2.5 MG/0.5ML(0.5%) NEB SOLN NEB SCH ×3 (06:44→17:53)
--- NOTE | 2018-08-19 07:30 | NUR ---
OPENING NOTE ASSUMED CARE OF PATIENT. ALERT AND ORIENTED. NO SIGNS OF SOB/DISTRESS NOTED. BED SET TO LOWEST POSITION/LOCKED, BEDSIDE RAILS UP X2, CALL LIGHT WITH IN REACH. INSTRUCTED PATIENT TO CALL FOR ASSISTANCE. DISCUSSED POC. WILL CONTINUE TO MONITOR Q 1HR AND PRN.
[2018-08-19 09:00] VITALS: BP 130/61
[2018-08-19] MEDS: DOCUSATE SOD 100 MG CAP PO SCH ×2 (09:02→21:10)
[2018-08-19] MEDS: ASPirin 81 mg TAB PO SCH (09:02)
[2018-08-19] MEDS: PANTOPRAZOLE 40 MG TAB PO SCH (09:02)
[2018-08-19] MEDS: AMIODARONE HCL 200 MG TAB PO SCH (09:02)
[2018-08-19] MEDS: ENOXAPARIN SOD 40 MG/0.4 ML SYRINGE SC SCH (09:02)
[2018-08-19] MEDS: FUROSEMIDE 20 MG TAB PO SCH (09:02)
[2018-08-19] MEDS: ONDANSETRON HCL 4 MG/2 ML VIAL IV PRN ×3 (09:03→18:52)
[2018-08-19] MEDS ORDERED: POTASSIUM CHL 20 Meq TABLET PO ONE ×2 (09:30→17:00)
[2018-08-19] MEDS: SODIUM CHLORIDE 0.9% 1,000 ML IV SCH (10:55)
[2018-08-19 13:00] VITALS: BP 129/63
[2018-08-19 17:33] VITALS: BP 120/62
--- NOTE | 2018-08-19 18:20 | NUR ---
PER DR. JACKSON HOLD BLOOD THINNERS.
--- NOTE | 2018-08-19 19:35 | NUR ---
assumed care, pt. awake, relative at bedside, no c/o pain and nausea, no sob.
[2018-08-19] MEDS: guaiFENesin-DM 100/10mg/5ml SYR PO PRN (21:11)
[2018-08-19] MEDS: TEMAZEPAM 15 MG CAP PO PRN (21:11)
[2018-08-19 22:00] VITALS: BP 122/75
[2018-08-20] MEDS: SODIUM CHLORIDE 0.9% 1,000 ML IV SCH (00:15)
[2018-08-20] MEDS: MORPHINE SULF INJ 2 MG/ML SYRINGE 1ML IV PRN ×3 (00:16→10:41)
[2018-08-20 05:00] VITALS: BP 124/60
[2018-08-20] MEDS: ALBUTEROL SULF 2.5 MG/0.5ML(0.5%) NEB SOLN NEB SCH ×3 (07:10→19:02)
[2018-08-20] MEDS: IPRATROPIUM BROM 0.5 MG/2.5ML INH SOL NEB SCH ×3 (07:10→19:02)
[2018-08-20] MEDS: Pro-Stat SF 30ml Vanilla PO SCH ×2 (08:00→18:00)
[2018-08-20 08:18] VITALS: BP 124/60
[2018-08-20 09:13] VITALS: BP 115/77
[2018-08-20] MEDS: ASPirin 81 mg TAB PO SCH (10:00)
[2018-08-20] MEDS: DOCUSATE SOD 100 MG CAP PO SCH ×2 (10:00→21:03)
[2018-08-20] MEDS: FUROSEMIDE 20 MG TAB PO SCH (10:39)
[2018-08-20] MEDS: POTASSIUM CHL 20 Meq TABLET PO SCH (10:39)
[2018-08-20] MEDS: PANTOPRAZOLE 40 MG TAB PO SCH (10:40)
[2018-08-20] MEDS: AMIODARONE HCL 200 MG TAB PO SCH (10:40)
[2018-08-20] MEDS: ONDANSETRON HCL 4 MG/2 ML VIAL IV PRN (10:50)
--- NOTE | 2018-08-20 11:27 | NUR ---
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 Pt's usually has fair appetite, tries to eat meals regularly, NKFA and tries tto follow Low Na and Heart healthy diet ship captain. Pt's NPO earlier, likely to resume oral diet today with active order for Cardiac diet with Prostat 1 pkt BID. Noted pt's for active Cardiology consult. Est. Needs: 1350 kcal to 1800 kcal (15-20 kcal/kgBW), 72 gms to 90 gms pro (0.8-1.0 gms/kgBW). Will continue to monitor pertinent labs and reassess nutrient need prn Labs: Gluc 118 H, K 3.2 L, Ca 8.0 L, AST 12 L, ALP 144 H, Tpro 5.8 L, Alb 1.7 L. Skin: Curly scale 16, mod risk, skin intact per plug maker. GI: Pt had 1x BM this morning per plug maker. PES: Altered nutrition related lab values r/t acute/chronic medical condition aeb hypocalcemia, low Cr, elev. ALP, LDL, and severe hypoalbuminemia Obesity r.t excessive PO intake aeb 179% IBW, BMI 36.1 kg/m2 and increased body adiposity Will continue to monitor NPO status/PO intake, skin status, pertinent labs and weight trend. F/u in 3 to 5 days. Rec.: 1.) Resume oral diet when medically appropriate. 2.) Consider daily MVI with minerals and Asc acid 500 mgs BID prn. 3.) Continue close supervision during meals. 4.) Refer pt to RD for further nutrition education and weight monitoring upon discharge. 5.) Continue current plan of care.
[2018-08-20] MEDS ORDERED: LIDOCAINE 1% (LOCAL ANESTH.) PF 5ml SDV ONE ×2 (11:58→11:59)
[2018-08-20] MEDS ORDERED: IOHEXOL 300 MG/ML 100ML BOTTLE IJ ONE (12:00)
[2018-08-20 13:14] VITALS: BP 116/66
--- NOTE | 2018-08-20 14:05 | NUR ---
PATIENT OFF UNIT VIA BED TO PEROP.
[2018-08-20] MEDS ORDERED: CLINDAMYCIN 900MG IV 50 ML IV ONE (14:09)
[2018-08-20] MEDS ORDERED: MIDAZOLAM HCL 1MG/1ML-2 ML VIAL ONE (14:24)
[2018-08-20] MEDS ORDERED: PROPOFOL 10 MG/ML 20 ML IV ONE (14:24)
[2018-08-20] MEDS ORDERED: fentaNYL CITRATE 100 MCG/2 ML VL ONE (14:24)
[2018-08-20] MEDS ORDERED: LIDOCAINE 1% HCL (LOCAL ANESTH.) INJ 20ML MDV ONE (15:19)
[2018-08-20] MEDS ORDERED: fentaNYL CITRATE 100 MCG/2 ML VL IV ONE (15:47)
[2018-08-20] MEDS ORDERED: ONDANSETRON HCL 4 MG/2 ML VIAL IV ONE (16:00)
[2018-08-20] MEDS ORDERED: hydrALAZINE HCL 20 MG/ML VL IV PRN (16:00)
[2018-08-20] MEDS ORDERED: fentaNYL CITRATE 100 MCG/2 ML VL IV PRN (16:00)
[2018-08-20] MEDS ORDERED: ePHEDrine SULFATE 50 MG/ML AMP IV PRN (16:00)
--- NOTE | 2018-08-20 16:10 | NUR ---
RECEIVED REPORT FROM INDUSTRIAL RENDERERNEDRA EUGENE. PER RN IV IS LEAKING AND SHE DID NOT TRY TO ATTEMPT TO PUT A NEW IV IN. SHE WILL PUT IN DIET ORDERS AND PER DR. SALMERON PATIENT DOES NOT HAVE TO WEAR BRACE AND TO HOLD LOVENOX UNTIL TOMORROW. MD SALMERON CLEARED PATIENT FOR DISCHARGE AND WANTS PATIENT TO FOLLOW UP OUTPATIENT. ENDORSE CARE TO PRIMARY RN
--- NOTE | 2018-08-20 16:20 | NUR ---
PATIENT BACK FROM OR. FOOD AND NUTRITION PROFESSOR NOT AT BEDSIDE. PATIENT WAS BROUGHT UP BY FOOD AND NUTRITION PROFESSOR LUISITO AND SHE LEFT SOON PATIENT WAS IN ROOM. RN DID NOT SHOW ME SURGICAL SITE.
--- NOTE | 2018-08-20 16:30 | NUR ---
PRIMARY RN JOSE ARMANDO BACK FROM LUNCH. UPDATED RN ON PATIENT'S STATUS AND DR. SALMERON'S ORDERS, RN IS AWARE AND IS ASSESSING PATIENT'S SURGICAL SITE.
[2018-08-20] MEDS ORDERED: HYDROcodone-ACET 10/325MG TAB PO ONE (16:45)
[2018-08-20 17:24] VITALS: BP 124/68
--- NOTE | 2018-08-20 19:30 | NUR ---
assumed care, pt. awake, no c/o pain and nausea, no sob.
[2018-08-20] MEDS ORDERED: HYDROcodone-ACET 5/325MG TAB PO ONE (20:00)
[2018-08-20] MEDS: TEMAZEPAM 15 MG CAP PO PRN (21:04)
[2018-08-20] MEDS: guaiFENesin-DM 100/10mg/5ml SYR PO PRN (21:04)
[2018-08-20 22:00] VITALS: BP 117/53
[2018-08-21] MEDS: MORPHINE SULF INJ 2 MG/ML SYRINGE 1ML IV PRN ×2 (00:39→04:44)
--- NOTE | 2018-08-21 02:00 | NUR ---
MIDLINE PLACEMENT UNSUCCESSFUL Patient educated on need for midline placement. All risks and benefits explained and all questions and concerns addresses prior to procedure. UNABLE TO PLACE MIDLINE AFTER ONE ATTEMPT ON EACH ARM. PT REQUESTING TO CONTINUE USING 22G IV SHE HAS ON HER CHEST.
[2018-08-21 05:09] VITALS: BP 128/63
[2018-08-21] MEDS: IPRATROPIUM BROM 0.5 MG/2.5ML INH SOL NEB SCH ×3 (06:18→18:37)
[2018-08-21] MEDS: ALBUTEROL SULF 2.5 MG/0.5ML(0.5%) NEB SOLN NEB SCH ×3 (06:18→18:37)
[2018-08-21] MEDS: Pro-Stat SF 30ml Vanilla PO SCH ×2 (08:00→18:12)
--- NOTE | 2018-08-21 08:02 | NUR ---
Dr. Ladi Tellez in to see patient as hospitalist.
[2018-08-21] MEDS: MORPHINE SULFATE 4 MG/ML SYR/VIAL IV PRN ×3 (08:59→21:05)
[2018-08-21 09:00] VITALS: BP_SYST 128; BP_SYST 148; BP_DIAS 69; BP_DIAS 75
[2018-08-21] MEDS: ONDANSETRON HCL 4 MG/2 ML VIAL IV PRN (09:00)
--- NOTE | 2018-08-21 09:25 | NUR ---
Pt. refusing to get out of bed today. Pt states that she is feeling a lot of pain secondary to yesterday's procedure. Advised patient will give her the day off today however, to be prepared for tomorrow so she can work with PT Pt has been working with her yellow TB which is at her bedside for billorena UE strengthening Addendum: 08/21/18 at 8348 by Talia Sahu PT Amended: Links added.
[2018-08-21] MEDS: AMIODARONE HCL 200 MG TAB PO SCH (09:50)
[2018-08-21] MEDS: DOCUSATE SOD 100 MG CAP PO SCH ×2 (09:51→21:35)
[2018-08-21] MEDS: POTASSIUM CHL 20 Meq TABLET PO SCH (09:51)
[2018-08-21] MEDS: ASPirin 81 mg TAB PO SCH (09:51)
[2018-08-21] MEDS: PANTOPRAZOLE 40 MG TAB PO SCH (09:51)
[2018-08-21] MEDS: FUROSEMIDE 20 MG TAB PO SCH (09:51)
[2018-08-21] MEDS ORDERED: POTASSIUM CHL 20 Meq TABLET PO SCH (10:00)
[2018-08-21 13:00] VITALS: BP 123/56
[2018-08-21] MEDS: CARISOPRODOL 350 MG TAB PO PRN (13:08)
[2018-08-21 17:00] VITALS: BP 121/55
[2018-08-21] MEDS: guaiFENesin-DM 100/10mg/5ml SYR PO PRN (19:21)
--- NOTE | 2018-08-21 20:00 | NUR ---
OPENING NOTE RECEIVED REPORT FROM DAYSHIFT RN. ASSUMING ROLE OF CARE OF PATIENT AT THIS TIME. PATIENT SHOWING NO SIGN OF DISTRESS, SHORTNESS OF BREATH, BUT PATIENT DOES STATE HAVING PAIN. WILL MEDICATE PER PAIN PROTOCOL WHEN AVAILABLE. PATIENT AND EDUCATED ON PLAN OF CARE FOR THE NIGHT AND PATIENT VERBALIZED UNDERSTANDING. BED LOWERED, CALL LIGHT WITHIN REACH, AND PATIENT WILL BE ROUNDED ON EVERY HOUR AND NEEDED.
[2018-08-21 22:00] VITALS: BP 146/71
[2018-08-21] MEDS: TEMAZEPAM 15 MG CAP PO PRN (22:19)
[2018-08-22] MEDS: MORPHINE SULFATE 4 MG/ML SYR/VIAL IV PRN ×3 (04:36→18:41)
[2018-08-22] MEDS: guaiFENesin-DM 100/10mg/5ml SYR PO PRN ×3 (04:44→19:37)
[2018-08-22 04:59] VITALS: BP 137/69
[2018-08-22] MEDS: ALBUTEROL SULF 2.5 MG/0.5ML(0.5%) NEB SOLN NEB SCH ×3 (06:28→18:26)
[2018-08-22] MEDS: IPRATROPIUM BROM 0.5 MG/2.5ML INH SOL NEB SCH ×3 (06:28→18:26)
[2018-08-22] MEDS: Pro-Stat SF 30ml Vanilla PO SCH ×2 (08:00→18:00)
[2018-08-22 09:00] VITALS: BP 134/63
[2018-08-22] MEDS: POTASSIUM CHL 20 Meq TABLET PO SCH (09:49)
[2018-08-22] MEDS: DOCUSATE SOD 100 MG CAP PO SCH ×2 (09:49→21:20)
[2018-08-22] MEDS: PANTOPRAZOLE 40 MG TAB PO SCH (09:49)
[2018-08-22] MEDS: CARISOPRODOL 350 MG TAB PO PRN ×2 (09:49→22:05)
[2018-08-22] MEDS: ASPirin 81 mg TAB PO SCH (09:49)
[2018-08-22] MEDS: AMIODARONE HCL 200 MG TAB PO SCH (09:49)
[2018-08-22] MEDS: FUROSEMIDE 20 MG TAB PO SCH (09:50)
--- NOTE | 2018-08-22 11:05 | NUR ---
Patient requesting to have another rest day today. Pt educated on the importance of getting out of bed, pt understood. Patient agreed to do bedside ther ex, patient worked on ankle pumps, heel slides, quad sets, glute sets and hip abd/add x 10 reps for bilat LE's. Advised patient will return in afternoon so she can work on her bed mobility and get out of bed to work on sit to stand Addendum: 08/22/18 at 1107 by Talia Sahu PT Amended: Links added.
--- NOTE | 2018-08-22 11:30 | NUR ---
Patient having weeping from skin. Generalized edema noted. Patient resistant to turning. Patient education given re need to move and turn frequently. Patient states understanding. Will continue to monitor.
[2018-08-22 13:00] VITALS: BP 123/63
[2018-08-22 16:52] VITALS: BP 125/48
--- NOTE | 2018-08-22 18:48 | NUR ---
Patient assisted with bedpan. Skin to buttocks moist, weeping. Patient reminded that she needs to turn frequently. Patient sat up to eat dinner tray. Will continue to monitor.
--- NOTE | 2018-08-22 20:00 | NUR ---
OPENING NOTE RECEIVED REPORT FROM MARTA RN. ASSUMING ROLE OF CARE OF PATIENT AT THIS TIME. PATIENT SHOWING NO SIGN OF DISTRESS, SHORTNESS OF BREATH, PATIENT STATES PAIN BUT MEDICINE NOT AVAILABLE AT THIS TIME. WILL MEDICATE PER PAIN PROTOCOL WHEN AVAILABLE. PATIENT EDUCATED ON PLAN OF CARE FOR THE NIGHT AND PATIENT VERBALIZED UNDERSTANDING. PATIENT HAS REFUSED PT AGAIN TODAY AND SHOWS WEAKNESS. WILL TURN PATIENT EVERY 2 HOURS TO PREVENT SORES. BED LOWERED, CALL LIGHT WITHIN REACH, AND PATIENT WILL BE ROUNDED ON EVERY HOUR AND NEEDED.
[2018-08-22 22:00] VITALS: BP 128/64
[2018-08-23] MEDS: guaiFENesin-DM 100/10mg/5ml SYR PO PRN ×2 (00:10→06:03)
[2018-08-23] MEDS: MORPHINE SULFATE 4 MG/ML SYR/VIAL IV PRN ×4 (00:22→18:35)
[2018-08-23 05:00] VITALS: BP 112/61
[2018-08-23] MEDS: IPRATROPIUM BROM 0.5 MG/2.5ML INH SOL NEB SCH ×3 (06:30→19:05)
[2018-08-23] MEDS: ALBUTEROL SULF 2.5 MG/0.5ML(0.5%) NEB SOLN NEB SCH ×3 (06:30→19:05)
--- NOTE | 2018-08-23 07:30 | NUR ---
OPENING NOTE ASSUMED PATIENT CARE. PATIENT STATES SHE CAN TURN INDEPENDENTLY IN BED. EDUCATED PATIENT ON THE IMPORTANCE OF TURNING OFTEN, PATIENT VERBALIZED UNDERSTANDING. WILL CONTINUE CARE.
[2018-08-23] MEDS: Pro-Stat SF 30ml Vanilla PO SCH ×2 (08:00→18:00)
[2018-08-23 08:59] VITALS: BP 112/61
[2018-08-23] MEDS: POTASSIUM CHL 20 Meq TABLET PO SCH (10:38)
[2018-08-23] MEDS: ASPirin 81 mg TAB PO SCH (10:38)
[2018-08-23] MEDS: DOCUSATE SOD 100 MG CAP PO SCH ×3 (10:38→21:24)
[2018-08-23] MEDS: FUROSEMIDE 20 MG TAB PO SCH ×2 (10:39→18:34)
[2018-08-23] MEDS: AMIODARONE HCL 200 MG TAB PO SCH (10:39)
[2018-08-23] MEDS: PANTOPRAZOLE 40 MG TAB PO SCH (10:39)
--- NOTE | 2018-08-23 12:00 | NUR ---
PAGED RESPIRATORY PER PATIENT REQUEST FOR TREATMENT. NO S/S OF DISTRESS AT THIS TIME, WILL CONTINUE CARE.
[2018-08-23] MEDS: ONDANSETRON HCL 4 MG/2 ML VIAL IV PRN ×2 (12:05→18:34)
[2018-08-23 13:00] VITALS: BP 113/60
[2018-08-23] MEDS ORDERED: POTASSIUM EFFERVESENT TAB 25 MEQ PO ONE (14:15)
--- NOTE | 2018-08-23 14:20 | NUR ---
SPOKE WITH MD YANG ABOUT PATIENT REQUEST FOR [facility]. NO NEW ORDERS GIVEN AT THIS TIME. WILL CONTINUE CARE.
[2018-08-23 17:00] VITALS: BP 111/40
[2018-08-23 18:30] VITALS: BP 128/80
--- NOTE | 2018-08-23 20:00 | NUR ---
Opening Shift Note Assumed care of patient, awake and alert. No S/S of distress/SOB or pain. Instructed on POC and to call for assist PRN, will continue to monitor for changes Q1hr and PRN.Family at bedside.
[2018-08-23] MEDS: POTASSIUM CHLORIDE 8 MEQ TAB PO SCH (21:24)
[2018-08-23 22:00] VITALS: BP 125/70
[2018-08-24] MEDS: ONDANSETRON HCL 4 MG/2 ML VIAL IV PRN ×4 (00:30→19:34)
[2018-08-24] MEDS: MORPHINE SULFATE 4 MG/ML SYR/VIAL IV PRN ×4 (00:30→19:28)
[2018-08-24] MEDS: guaiFENesin-DM 100/10mg/5ml SYR PO PRN ×5 (00:33→23:43)
[2018-08-24] MEDS: ALBUTEROL SULF 2.5 MG/0.5ML(0.5%) NEB SOLN NEB PRN (03:12)
[2018-08-24] MEDS: FUROSEMIDE 20 MG TAB PO SCH (05:19)
[2018-08-24 05:29] VITALS: BP 107/65
[2018-08-24 06:38] LABS: Basophils # (auto) 0 uL; Basophils % (auto) 0.3 % (0.0-2.0); Eosinophils # (auto) 0.1 uL; Eosinophils % (auto) 1.1 % (0.0-7.0); Hematocrit 28.6 % (36.0-46.0); Hemoglobin 9.3 g/dL (12.2-16.2); Lymphocytes # (auto) 1.3 uL; Lymphocytes % (auto) 18.3 % (10.0-50.0); Mean Corpuscular Hemoglobin 28.2 pg (28.0-32.0); Mean Corpuscular Hgb Conc. 32.7 g/dL (32.0-36.0); Mean Corpuscular Volume 86.4 fL (80.0-100.0); Monocytes # (auto) 0.8 uL; Monocytes % (auto) 10.9 % (0.0-12.0); Neutrophils % (auto) 69.4 % (37.0-80.0); Platelet Count (auto) 330 10^3/uL (140-450); Red Blood Cells 3.31 10^6/uL (4.0-5.20); White Blood Cell 7.2 10^3/uL (4.4-10.8)
--- NOTE | 2018-08-24 07:02 | NUR ---
Report given to Hi Woodard to assume care, patient is resting no distress.
[2018-08-24 07:04] LABS: Albumin 1.8 g/dL (3.4-5.0); Calcium 8.5 mg/dL (8.5-10.1); Potassium 4.1 mmol/L (3.5-5.1)
[2018-08-24 07:09] LABS: BUN/Creatinine Ratio 9.3; Bilirubin, Total 0.3 mg/dL (0.2-1.0); Total Protein 5.9 g/dL (6.4-8.2)
[2018-08-24] MEDS: IPRATROPIUM BROM 0.5 MG/2.5ML INH SOL NEB SCH ×3 (07:11→18:30)
[2018-08-24] MEDS: ALBUTEROL SULF 2.5 MG/0.5ML(0.5%) NEB SOLN NEB SCH ×3 (07:11→18:30)
--- NOTE | 2018-08-24 07:30 | NUR ---
OPENING NOTE PATIENT IN BED. NO S/S OF DISTRESS. PATIENT STATES SHE IS ABLE TO TURN INDEPENDENTLY. REINFORCED THE IMPORTANCE OF TURNING FREQUENTLY. PATIENT VERBALIZED UNDERSTANDING. PATIENT INSTRUCTED TO CALL IF SHE NEEDS ASSISTANCE WITH TURNING. WILL CONTINUE CARE.
[2018-08-24 09:00] VITALS: BP 127/65
[2018-08-24] MEDS ORDERED: AZITHROMYCIN 250 MG TAB PO ONE (09:15)
[2018-08-24] MEDS ORDERED: FUROSEMIDE 40 MG TAB PO ONE (09:15)
[2018-08-24] MEDS: DOCUSATE SOD 100 MG CAP PO SCH ×3 (10:00→21:59)
--- NOTE | 2018-08-24 10:00 | NUR ---
SPUTUM SENT PER ORDERS.
[2018-08-24] MEDS: Pro-Stat SF 30ml Vanilla PO SCH ×2 (10:05→17:11)
[2018-08-24] MEDS: POTASSIUM CHLORIDE 8 MEQ TAB PO SCH ×2 (10:06→22:00)
[2018-08-24] MEDS: ASPirin 81 mg TAB PO SCH (10:06)
[2018-08-24] MEDS: AMIODARONE HCL 200 MG TAB PO SCH (10:06)
[2018-08-24] MEDS: PANTOPRAZOLE 40 MG TAB PO SCH (10:06)
--- NOTE | 2018-08-24 11:15 | NUR ---
WOUND CARE NOTE: IN TO SEE PATIENT AT THIS TIME PER WOUND CARE CONSULT REQUEST. PATIENT ADMITTED TO [facility] WITH DIAGNOSIS OF ACUTE/CHRONIC BACK PAIN. SHE IS STATUS POST BACK SURGERY DURING THIS HOSPITALIZATION. PATIENT IS NOT MOVING MUCH. SHE STATES THAT SHE IS WORKING WITH PHYSICAL THERAPY, AND WAS ABLE TO SIG ON SIDE OF BED FOR A VERY SHORT PERIOD OF TIME, AND STANDING FOR A MOMENT OR TWO. PATIENT IS NOTED TO BE ABLE TO SELF TURN/REPOSITION SELF. PATIENT IS NOTED TO HAVE MASD AND INTERTRIGO TO BILATERAL BUTTOCKS, PERIANAL, PERINEAL SKIN. PATIENT HAS FLAKING RED SKIN, WITH SOME SKIN EROSION NOTED. APPLIED THICK LAYER OF ZGUARD. PATIENT EDUCATED ON WOUND CARE, PRESSURE REDISTRIBUTION , MOISTURE MANAGEMENT. PATIENT VERBALIZED UNDERSTANDING. NO OTHER SKIN INTEGRITY ISSUES NOTED AT THIS TIME. RECOMMEND: FREQUENT TURN SCHEDULE Q 2 HOURS, PRN CONDITION PERMITS, WITH PRESSURE REDISTRIBUTION USING PILLOWS/WEDGES, BID/PRN APPLICATION WITH ZGUARD, OPTIFOAM GENTLE SACRAL DRESSING TO UPPER MEDIAL SACRUM PREVENTATIVE, SKIN/WOUND CARE PLAN, DIETARY CONSULT, CONTINUED MONITORING BY WOUND CARE TEAM. Addendum: 08/24/18 at 1717 by Cortney Salcido RN Amended: Links added.
[2018-08-24] MEDS: Ensure Enlive Strawberry 8oz Bottle PO SCH ×3 (12:00→21:59)
--- NOTE | 2018-08-24 12:00 | NUR ---
SKIN CARE ZGUARD AND OPTIFOAM APPLIED TO SACRUM PER WOUND CARE RECOMMENDATION. PATIENT TOLERATED WELL. NO S/S OF DISTRESS.
[2018-08-24 13:00] VITALS: BP 117/65
--- NOTE | 2018-08-24 14:50 | NUR ---
PAGED PHYSICAL THERAPY TO BEDSIDE.
--- NOTE | 2018-08-24 15:30 | NUR ---
PHYSICAL THERAPY PATIENT UP TO CHAIR FOR 30 MINUTES, PLACED BACK IN BED BY PHYSICAL THERAPY. NO S/S OF DISTRESS. WILL CONTINUE CARE.
--- NOTE | 2018-08-24 16:27 | NUR ---
SPOKE WITH MD MARTIN, NEW ORDERS GIVEN, SEE ORDERS.
[2018-08-24 17:00] VITALS: BP 149/56
[2018-08-24] MEDS: FUROSEMIDE 40 MG TAB PO SCH (17:10)
--- NOTE | 2018-08-24 17:55 | NUR ---
PATIENT TURNING EDUCATED PATIENT ON TURNING. PATIENT VERBALIZED UNDERSTANDING BUT STATED SHE CANNOT TOLERATE BEING ON HER SIDE ANYMORE. PATIENT POSITIONED TO THE SUPINE POSITION PER HER REQUEST AT THIS TIME, TOLERATING WELL. WILL CONTINUE CARE.
--- NOTE | 2018-08-24 19:19 | NUR ---
CLOSING NOTE ENDORSED CARE TO PRODUCTION MACHINE OPERATOR RN. PATIENT IN BED LOW LOCK POSITION, CALL LIGHT IN REACH. NO S/S OF DISTRESS.
--- NOTE | 2018-08-24 19:24 | NUR ---
Opening Shift Note Assumed care of patient, awake and alert x 4. No S/S of distress/SOB. Bed is in lowest position and locked. Call light within reach. Board updated. Olivas catheter secured to thigh with collection bag hung below bladder and secured to non-moveable part of bedframe. Instructed on POC and to call for assist PRN, will continue to monitor for changes Q1hr and PRN.
[2018-08-24] MEDS: CARISOPRODOL 350 MG TAB PO PRN (20:39)
[2018-08-24 22:00] VITALS: BP 130/64
[2018-08-25] MEDS: MORPHINE SULFATE 4 MG/ML SYR/VIAL IV PRN ×2 (01:20→11:53)
[2018-08-25] MEDS: ONDANSETRON HCL 4 MG/2 ML VIAL IV PRN ×2 (01:25→09:27)
[2018-08-25] MEDS: guaiFENesin-DM 100/10mg/5ml SYR PO PRN ×2 (03:37→11:59)
[2018-08-25] MEDS: IPRATROPIUM BROM 0.5 MG/2.5ML INH SOL NEB SCH ×3 (05:39→18:17)
[2018-08-25] MEDS: ALBUTEROL SULF 2.5 MG/0.5ML(0.5%) NEB SOLN NEB SCH ×3 (05:39→18:17)
[2018-08-25] MEDS: FUROSEMIDE 40 MG TAB PO SCH (05:42)
[2018-08-25] MEDS: Ensure Enlive Strawberry 8oz Bottle PO SCH ×4 (05:42→21:24)
[2018-08-25 05:49] VITALS: BP 110/52
[2018-08-25 07:12] LABS: Basophils # (auto) 0 uL; Basophils % (auto) 0.4 % (0.0-2.0); Eosinophils # (auto) 0.2 uL; Hematocrit 27.3 % (36.0-46.0); Hemoglobin 8.9 g/dL (12.2-16.2); Lymphocytes # (auto) 1.2 uL; Lymphocytes % (auto) 15.5 % (10.0-50.0); Mean Corpuscular Hemoglobin 28.2 pg (28.0-32.0); Mean Corpuscular Hgb Conc. 32.4 g/dL (32.0-36.0); Mean Corpuscular Volume 87.1 fL (80.0-100.0); Monocytes # (auto) 0.8 uL; Neutrophils # (auto) 5.4 uL; Neutrophils % (auto) 72.1 % (37.0-80.0); Platelet Count (auto) 306 10^3/uL (140-450); Red Blood Cells 3.14 10^6/uL (4.0-5.20); Red Cell Distribution Width 16.8 % (11.8-14.3); White Blood Cell 7.5 10^3/uL (4.4-10.8)
[2018-08-25 07:28] LABS: Potassium 3.9 mmol/L (3.5-5.1)
[2018-08-25 07:37] LABS: BUN/Creatinine Ratio 8.6; Calcium 8.5 mg/dL (8.5-10.1)
[2018-08-25] MEDS: Pro-Stat SF 30ml Vanilla PO SCH ×2 (08:00→18:00)
[2018-08-25 09:00] VITALS: BP 124/59
[2018-08-25] MEDS: CARISOPRODOL 350 MG TAB PO PRN (09:27)
[2018-08-25] MEDS: DOCUSATE SOD 100 MG CAP PO SCH (09:27)
[2018-08-25] MEDS: POTASSIUM CHLORIDE 8 MEQ TAB PO SCH (09:28)
[2018-08-25] MEDS: PANTOPRAZOLE 40 MG TAB PO SCH (09:28)
[2018-08-25] MEDS: AMIODARONE HCL 200 MG TAB PO SCH (09:28)
[2018-08-25] MEDS: ASPirin 81 mg TAB PO SCH (09:28)
[2018-08-25] MEDS ORDERED: AZITHROMYCIN 250 MG TAB PO SCH (10:00)
--- NOTE | 2018-08-25 11:38 | NUR ---
Nutrition Consult and Follow-up Notes Wt.: 91.7 kg as of yesterday Pt's on oxygen via nasal cannula, asleep, no signs of distress noted earlier, currently on Cardiac diet with Ensure Enlive 1 carton QID and Prostat 1 pkt BID, has fair PO intake aeb 60% ave. consumed meals (x6) in last 2.5 days. Noted pt's for active Wound consult. Est. Needs: 1350 kcal to 1800 kcal (15-20 kcal/kgBW), 72 gms to 90 gms pro (0.8-1.0 gms/kgBW). Will continue to monitor pertinent labs and reassess nutrient need prn Labs:Cl 96 L, CO2 40 H, BUN 5 L, AST 14 L, ALT 11 L, ALP 132 H, Tpro 5.9 L, Alb 1.8 L. Skin: Curly scale 14, mod risk, posterior sacrum skin tear per equipment engineer. Pls refer to aircraft engine installer's notes yesterday for further details re: tx plans. GI: Pt had 1x BM 08/21/18 per equipment engineer. PES: Altered nutrition related lab values r/t acute/chronic medical condition aeb hypocalcemia, low Cr, elev. ALP, LDL, and severe hypoalbuminemia Obesity r/t excessive energy more than body requirement aeb 179% IBW, BMI 36.1 kg/m2 and increased body adiposity Will continue to monitor PO intake, skin status, pertinent labs and weight trend. F/u in 3 to 5 days. Rec.: 1.) Consider daily MVI with minerals and Asc acid 500 mgs BID prn. 2.) Continue close supervision during meals. 3.) Refer pt to RD for further nutrition education and weight monitoring upon discharge. 4.) Continue current plan of care. Thank you for this consult.
[2018-08-25 13:00] VITALS: BP 109/61
[2018-08-25] MEDS ORDERED: MORPHINE SULFATE 4 MG/ML SYR/VIAL IV PRN (14:45)
[2018-08-25] MEDS ORDERED: fentaNYL 25MCG/HR 25 MCG/HR PAT TD SCH (15:30)
[2018-08-25] MEDS ORDERED: HYDROcodone-ACET 5/325MG TAB PO PRN (15:45)
[2018-08-25 17:00] VITALS: BP 122/69
[2018-08-25] MEDS ORDERED: ACETYLCYSTEINE 10 %(100MG/ML) SOL 4ML NEB SCH (18:00)
[2018-08-25] MEDS: BUDESONIDE (INHALATION) 0.5 MG/2 ML NEB NEB SCH (18:18)
[2018-08-25] MEDS: ACETYLCYSTEINE 10 %(100MG/ML) SOL 4ML NEB SCH (18:18)
--- NOTE | 2018-08-25 18:30 | NUR ---
Discharge instructions given as ordered. Encourage to follow up with PMD as instructed. All questions and concerns addressed. Patient verbalized understanding. Medication reconciliation form completed and copy given to patient. Patient denies home medications held in Pharmacy. IV removed with catheter intact, pressure dressing applied, Patient taken to vehicle via wheelchair with all personal belongings, accompanied by staff and family member. No distress noted at time of departure. Addendum: 08/25/18 at 1939 by KATHRINE SAMANO RN wrong patient
--- NOTE | 2018-08-25 19:20 | NUR ---
Change of shift given to shift supervisor rn RN. No distress noted.
[2018-08-25] MEDS: HYDROcodone-ACET 7.5/325MG TAB PO PRN (20:32)
[2018-08-25] MEDS: LACTULOSE 20Gm/30ML SOLN PO SCH (21:24)
[2018-08-25] MEDS: MORPHINE SULF 15mg ER tab PO SCH (21:25)
[2018-08-25 22:28] VITALS: BP 111/59
[2018-08-26] MEDS: HYDROcodone-ACET 7.5/325MG TAB PO PRN ×4 (00:41→18:14)
[2018-08-26 05:45] VITALS: BP 115/54
[2018-08-26] MEDS: Ensure Enlive Strawberry 8oz Bottle PO SCH ×4 (06:11→21:22)
[2018-08-26] MEDS: IPRATROPIUM BROM 0.5 MG/2.5ML INH SOL NEB SCH ×3 (07:04→18:46)
[2018-08-26] MEDS: ACETYLCYSTEINE 10 %(100MG/ML) SOL 4ML NEB SCH ×3 (07:04→18:47)
[2018-08-26] MEDS: ALBUTEROL SULF 2.5 MG/0.5ML(0.5%) NEB SOLN NEB SCH ×3 (07:04→18:46)
[2018-08-26] MEDS: BUDESONIDE (INHALATION) 0.5 MG/2 ML NEB NEB SCH ×2 (07:04→18:46)
[2018-08-26] MEDS: Pro-Stat SF 30ml Vanilla PO SCH ×2 (08:00→18:21)
[2018-08-26 08:19] VITALS: BP 115/54
[2018-08-26 09:00] VITALS: BP 124/56
[2018-08-26] MEDS ORDERED: POTASSIUM CHLORIDE 8 MEQ TAB PO SCH (10:00)
[2018-08-26] MEDS: LACTULOSE 20Gm/30ML SOLN PO SCH ×2 (10:22→21:20)
[2018-08-26] MEDS: ONDANSETRON HCL 4 MG/2 ML VIAL IV PRN ×3 (10:22→21:38)
[2018-08-26] MEDS: POTASSIUM CHL 10 Meq TABLET PO SCH (10:23)
[2018-08-26] MEDS: AMIODARONE HCL 200 MG TAB PO SCH (10:23)
[2018-08-26] MEDS: PANTOPRAZOLE 40 MG TAB PO SCH (10:23)
[2018-08-26] MEDS: FUROSEMIDE 40 MG TAB PO SCH (10:24)
[2018-08-26] MEDS: MORPHINE SULF 15mg ER tab PO SCH ×2 (10:24→21:21)
[2018-08-26] MEDS: ASPirin 81 mg TAB PO SCH (10:25)
[2018-08-26] MEDS ORDERED: LEVOFLOXACIN 500MG 100 ML IV ONE (10:30)
[2018-08-26 13:00] VITALS: BP 108/62
[2018-08-26 17:00] VITALS: BP 130/51
--- NOTE | 2018-08-26 18:00 | NUR ---
Eliseo ROSSI at bedside. Addendum: 08/26/18 at 1852 by KATHRINE SAMANO RN wrong patient
--- NOTE | 2018-08-26 19:20 | NUR ---
Change of shift given to police shift commander RN. No distress noted.
[2018-08-26 22:14] VITALS: BP 109/60
[2018-08-27] MEDS: ALBUTEROL SULF 2.5 MG/0.5ML(0.5%) NEB SOLN NEB PRN (00:19)
[2018-08-27] MEDS: ONDANSETRON HCL 4 MG/2 ML VIAL IV PRN ×2 (04:53→10:11)
[2018-08-27] MEDS: HYDROcodone-ACET 7.5/325MG TAB PO PRN (04:53)
[2018-08-27 05:43] VITALS: BP 125/69
[2018-08-27] MEDS: BUDESONIDE (INHALATION) 0.5 MG/2 ML NEB NEB SCH (06:00)
[2018-08-27] MEDS: IPRATROPIUM BROM 0.5 MG/2.5ML INH SOL NEB SCH ×2 (06:00→12:43)
[2018-08-27] MEDS: ACETYLCYSTEINE 10 %(100MG/ML) SOL 4ML NEB SCH ×2 (06:00→12:43)
[2018-08-27] MEDS: ALBUTEROL SULF 2.5 MG/0.5ML(0.5%) NEB SOLN NEB SCH ×2 (06:00→12:43)
[2018-08-27] MEDS: Ensure Enlive Strawberry 8oz Bottle PO SCH ×2 (06:00→12:00)
--- NOTE | 2018-08-27 07:13 | NUR ---
Report given to Hi Santos to assume care, patient is resting no distress.
[2018-08-27] MEDS: Pro-Stat SF 30ml Vanilla PO SCH (08:00)
--- NOTE | 2018-08-27 08:35 | NUR ---
EKG obtained due to abnormal telemetry reading. Patient is asymptomatic and denies s/s of distress, CP, or SOB. EKG read by Dr. Bernal. No new orders received.
[2018-08-27] MEDS ORDERED: LEVOFLOXACIN 500MG 100 ML IV SCH (10:00)
[2018-08-27] MEDS: FUROSEMIDE 40 MG TAB PO SCH (10:00)
[2018-08-27] MEDS: POTASSIUM CHL 10 Meq TABLET PO SCH (10:00)
[2018-08-27] MEDS: LACTULOSE 20Gm/30ML SOLN PO SCH (10:00)
[2018-08-27] MEDS: PANTOPRAZOLE 40 MG TAB PO SCH (10:10)
[2018-08-27] MEDS: MORPHINE SULF 15mg ER tab PO SCH (10:10)
[2018-08-27] MEDS: ASPirin 81 mg TAB PO SCH (10:10)
[2018-08-27] MEDS: AMIODARONE HCL 200 MG TAB PO SCH (10:11)
--- NOTE | 2018-08-27 10:20 | NUR ---
Wound care performed as ordered and discharge photos taken.
--- NOTE | 2018-08-27 10:26 | NUR ---
Strauss catheter dc'd Order to discontinue strauss catheter. Strauss dc'd with clean technique following deflation of balloon. Patient tolerated well with no complaints of pain. Continue care.
[2018-08-27 12:00] VITALS: BP 125/69
[2018-08-27 13:17] VITALS: BP 125/69
--- NOTE | 2018-08-27 14:08 | NUR ---
Dr. Trujillo aware of MDRO sputum culture. Additional orders received to have patient receive IV antibiotics at SNF at ordered. Read back and verified with MD. Per MD, continue with discharge. liquor rectifier Khai blanc. Spoke with Maxine from social sciences research scientist. Per , patient will still be transported at 1430. SNF has needed antibiotics.
--- NOTE | 2018-08-27 14:35 | NUR ---
[facility] SWAB SENT
--- NOTE | 2018-08-27 14:35 | NUR ---
Report given to Consuelo MESA at [facility]. SENIOR QUALITY ASSURANCE ANALYST aware patient's status has changed to isolation and will be needing IV antibiotics. All questions and concerns addressed. SENIOR QUALITY ASSURANCE ANALYST encouraged to call back with additional questions if needed.
--- NOTE | 2018-08-27 14:35 | NUR ---
Spoke with social science instructor. Accepting MD is now Dr. Wells.
[2018-08-27] MEDS ORDERED: cefTAZidime 1 GM in SODIUM CHL 0.9% 50 ML IV SCH (15:00)
--- NOTE | 2018-08-27 15:01 | NUR ---
Discharge instructions given as ordered. Encourage to follow up with PMD as instructed. All questions and concerns addressed. Patient verbalized understanding. Medication reconciliation form completed and copy given to patient. Patient denies Home medications held in Pharmacy. IV removed with catheter intact, pressure dressing applied, strauss catheter removed, patient voided 200mL ater strauss catheter removal, bladder non-distendedm per Dr. Garnett patient may discharge to SNF. Patient taken to [facility] via gurney with all personal belongings, accompanied by transportation staff. No distress noted at time of departure.
--- NOTE | 2018-08-27 15:09 | NUR ---
Per SS consult for SNF placement with ceftazadime 1 gram IVPB every 12 hours. Contacted [facility] Ph: ) Fax: ) faxed medical records. Per Lloyd from [facility] Pt has been accepted to room [address] Wells. Per Lloyd [facility] Ph: ) will orange picker Pt at 14:30. Informed NEDRA Santos. Addendum: 08/27/18 at 1510 by NANCI ANDRADE Amended: Links added.
== END 2018-08-27 19:00 | DRG 515 ==
LOC: EDBD 18:27 → ER 18:30 → OVERFLOW 18:31 → CENTRAL 08-07 09:40
PROVIDERS: ADMIT Nurse Practitioner; ATTEND Internal Medicine
PROC: 0QU03JZ Supplement Lumbar Vertebra with Synthetic Substitute, Percutaneous Approach (ICD-10-PCS; 2018-08-20)
PROC: 0QS03ZZ Reposition Lumbar Vertebra, Percutaneous Approach (ICD-10-PCS; principal; 2018-08-20 14:25)
DX: S32.019A Unspecified fracture of first lumbar vertebra, initial encounter for closed fracture (principal); K85.90 Acute pancreatitis without necrosis or infection, unspecified; E43 Unspecified severe protein-calorie malnutrition; I50.33 Acute on chronic diastolic (congestive) heart failure; M87.9 Osteonecrosis, unspecified; E44.0 Moderate protein-calorie malnutrition; I13.0 Hypertensive heart and chronic kidney disease with heart failure and stage 1 through stage 4 chronic kidney disease, or unspecified chronic kidney disease; J44.1 Chronic obstructive pulmonary disease with (acute) exacerbation; K80.20 Calculus of gallbladder without cholecystitis without obstruction; N28.1 Cyst of kidney, acquired; N20.0 Calculus of kidney; I48.91 Unspecified atrial fibrillation; E66.01 Morbid (severe) obesity due to excess calories; G89.29 Other chronic pain; M54.16 Radiculopathy, lumbar region; D72.829 Elevated white blood cell count, unspecified; K57.30 Diverticulosis of large intestine without perforation or abscess without bleeding; W18.39XA Other fall on same level, initial encounter; N18.3 Chronic kidney disease, stage 3 (moderate); E87.6 Hypokalemia; Z95.0 Presence of cardiac pacemaker; Z88.0 Allergy status to penicillin; Z88.2 Allergy status to sulfonamides; Z68.37 Body mass index [BMI] 37.0-37.9, adult; Z86.73 Personal history of transient ischemic attack (TIA), and cerebral infarction without residual deficits; Z87.442 Personal history of urinary calculi; Z99.81 Dependence on supplemental oxygen; Y93.89 Activity, other specified; Y92.89 Other specified places as the place of occurrence of the external cause; Y99.8 Other external cause status; Z81.8 Family history of other mental and behavioral disorders
CPT/HCPCS: 36415; 51702; 71045; 71250; 72100; 72131; 74176; 76001; 80048; 80053; 80061; 80162; 81001; 82150; 83605; 83690; 83880; 84132; 84443; 84484; 85025; 85610; 85730; 86850; 86900; 86901; 87040; 87070; 87077; 87081; 87186; 87205; 93005; 93306; 93970; 94640; 96365; 96366; 96368; 96375; 97110; 97116; 97163; 97530; G0378; J0696; J1956; J2001; J2250; J2405; J2704; J3490